=== PATIENT | male | born 1975 | race American Indian/Alaskan Native ===

== ENCOUNTER 2018-05-20 15:21 | Emergency (ER) | payer MEDICAID ==
--- NOTE | 2018-05-20 16:46 | ED PDOC ---
Arrival/HPI - General Chief Complaint: Dental Pain Time Seen by Provider: 05/20/18 15:46 Historian: Patient - History of Present Illness Narrative History of Present Illness (Text): 05/20/18 16:42 43-year-old male presents to the emergency room complaining of pain to the right lower first molar which started yesterday after he was eating and the crown on the tooth fell off. Patient states that he had a root canal on May 07 and had a crown placed to that same tooth by his dentist. States that he's been taking Motrin without improvement of pain, as well as left over antibiotic amoxicillin which she started taking yesterday. Otherwise reports mild swelling to the right side of his jaw, no fever, chills, headache, difficulty swallowing, neck swelling. Patient has no other complaints. Past Medical History - Past History Past History: No Previous - Infectious Disease Hx of Infectious Diseases: None - Tetanus Immunization Tetanus Immunization: Unknown - Past Medical History Past Medical History: No Previous - Musculoskeletal/Rheumatological Hx Back Pain: Yes - Psychiatric Hx Anxiety: No Hx Bipolar Disorder: No Hx Depression: No Hx Post Traumatic Stress Disorder: No Hx Schizophrenia: No Hx Substance Use: No - Past Surgical History Past Surgical History: No Previous - Anesthesia Hx Anesthesia: No Hx Anesthesia Reactions: No Hx Malignant Hyperthermia: No - Suicidal Assessment Feels Threatened In Home Enviroment: No Family/Social History Family/Social History: No Known Family HX Smoking Status: Former Smoker Hx Alcohol Use: Yes Frequency of alcohol use: Socially Hx Substance Use: No Hx Substance Use Treatment: No Allergies/Home Meds Allergies/Adverse Reactions: Allergies No Known Allergies Allergy (Verified 06/11/17 02:32) Home Medications: Home Meds Medication Instructions Recorded Confirmed ALPRAZolam [Xanax] 1 mg PO PRN PRN 06/11/17 06/11/17 Oxycodone HCl [Roxicodone] 30 mg PO BID 06/11/17 06/11/17 Review of Systems - Review of Systems Constitutional: absent: Fatigue, Fevers ENT: Other (toothache). absent: TMJ Pain, Sore Throat, Rhinorrhea, Sinus Congestion Respiratory: absent: SOB, Cough Skin: absent: Rash, Pruritis, Skin Lesions Neurological: absent: Headache, Dizziness Physical Exam Vital Signs Temp Pulse Resp BP Pulse Ox 05/20/18 15:22 98.5 F 106 H 18 121/76 98 Temperature: Afebrile Blood Pressure: Normal Pulse: Tachycardic Respiratory Rate: Normal Appearance: Positive for: Well-Appearing, Non-Toxic, Comfortable Pain Distress: Mild Mental Status: Positive for: Alert and Oriented X 3 - Systems Exam Head: Present: Atraumatic, Normocephalic Pupils: Present: PERRL Extroacular Muscles: Present: EOMI Conjunctiva: Present: Normal Mouth: Present: Moist Mucous Membranes, Other (+fracture to the R 1st bottom molar, with minimal gingival swelling, no palpable abscess, R 2nd and 3rd bottom molar is missing, +minimal swelling to the R mandible ) Pharnyx: Present: Normal. No: ERYTHEMA, EXUDATE Neck: Present: Normal Range of Motion. No: Meningeal Signs, Lymphadenopathy Upper Extremity: Present: Normal Inspection Lower Extremity: Present: Normal Inspection Neurological: Present: GCS=15, CN II-XII Intact, Speech Normal, Motor Func Grossly Intact, Normal Sensory Function Skin: Present: Warm, Dry, Normal Color. No: Rashes Medical Decision Making ED Course and Treatment: 05/20/18 16:46 Patient medicated with tramadol by mouth. Advised to follow up with dentist in 1-2 days without fail. Advised to take medication as prescribed. Return to the emergency room at any time for any new or worsening symptoms. Patient states he fully agrees with and understands discharge instructions. States that he agrees with the plan and disposition. Verbalized and repeated discharge instructions and plan. I have given the patient opportunity to ask any additional questions. - PA / GARMENT SEWER HAND / Resident Statement MD/DO has reviewed & agrees with the documentation as recorded. Disposition/Present on Arrival - Present on Arrival Any Indicators Present on Arrival: No History of DVT/PE: No History of Uncontrolled Diabetes: No Urinary Catheter: No History of Decub. Ulcer: No History Surgical Site Infection Following: None - Disposition Have Diagnosis and Disposition been Completed?: Yes Diagnosis: Toothache Disposition: HOME/ ROUTINE Disposition Time: 16:40 Patient Plan: Discharge Condition: STABLE Discharge Instructions (ExitCare): Dental Pain (DC) Additional Instructions: Thank you for letting us take care of you today. You were treated for dental pain. The emergency medical care you received today was directed at your acute symptoms. If you were prescribed any medication, please fill it and take as directed. It may take several days for your symptoms to resolve. Return to the Emergency Department if your symptoms worsen, do not improve, or if you have any other problems. Please contact your dentist in 2 days for re-evaluation and follow up / or call one of the physicians/clinics you have been referred to that are listed on the Patient Visit Information form that is included in your discharge packet. Bring any paperwork you were given at discharge with you along with any medications you are taking to your follow up visit. Our treatment cannot replace ongoing medical care by a primary care provider (PCP) outside of the emergency department. Thank you for allowing the [facility] team to be part of your care today. Prescriptions: Amoxicillin 500 mg PO TID #21 tablet traMADol [Ultram] 50 mg PO TID PRN #12 tab PRN Reason: Pain, Moderate (4-7) Referrals: Bisi Jacques MD [Primary Care Provider] - Follow up with primary [facility] [Outside] - Follow up with primary Forms: [employer] ([employer]), WORK NOTE
[2018-05-21 00:39] VITALS: BMI 25.7
[2018-05-21 00:40] VITALS: BP 118/76; PULSE 90; RESP 18; TEMP 98.5; O2SAT 98
== END 2018-05-20 17:18 | disposition home or self-care (01) ==
LOC: ED 15:21
DX: K08.89 Other specified disorders of teeth and supporting structures (principal); Z87.891 Personal history of nicotine dependence